=== PATIENT | male | born 1935 | race Caucasian/White ===

== ENCOUNTER 2020-08-11 21:41 | Emergency (ER) | payer MEDICARE, OTHER ==
--- NOTE | 2020-08-11 22:07 | EDM.PDOC ---
ED HPI GENERAL MEDICAL PROBLEM - General Chief Complaint: Genitourinary Problem Stated Complaint: urinary retention Time Seen by Provider: 08/11/20 21:47 Source of Information: Reports: Patient History Limitations: Reports: No Limitations - History of Present Illness INITIAL COMMENTS - FREE TEXT/NARRATIVE: Pt had hernia surgery today at [facility] Has not urinated since Feels full and uncomfortable Onset: Today Duration: Hour(s): Location: Reports: Abdomen - Related Data Allergies Allergy/AdvReac Type Severity Reaction Status Date / Time No Known Allergies Allergy Verified 08/11/20 22:02 Home Meds: Home Meds Beta-Carotene [Beta Carotene] 1 tab PO DAILY 10/11/13 [History] Garlic 1 tab PO DAILY 10/11/13 [History] Lisinopril 10 mg PO DAILY 10/11/13 [History] Pantoprazole [Protonix] 40 mg PO DAILY 10/11/13 [History] ED ROS GENERAL - Review of Systems Review Of Systems: See Below GI/Abdominal: Reports: Abdominal Pain : Reports: Urinary Retention ED EXAM, RENAL/ - Physical Exam Exam: See Below GI/Abdominal: Soft, Tender Course - Vital Signs Last Recorded V/S: Last Vital Signs Temp 98.6 F 08/11/20 21:44 Pulse 78 08/11/20 21:44 Resp 12 08/11/20 21:44 BP 158/80 H 08/11/20 21:44 Pulse Ox 98 08/11/20 21:44 - Orders/Labs/Meds Labs: Laboratory Tests 08/11/20 Range/Units 21:40 Specimen Type Urincath Urine Color Yellow Urine Appearance Clear Urine pH 5.0 (5.0-9.0) Ur Specific [place] 1.020 (1.005-1.030) Urine Protein Trace H (NEGATIVE) mg/dL Urine Glucose (UA) Negative (NEGATIVE) mg/dL Urine Ketones Negative (NEGATIVE) mg/dL Urine Occult Blood Large H (NEGATIVE) Urine Nitrite Negative (NEGATIVE) Urine Bilirubin Negative (NEGATIVE) Urine Urobilinogen 0.2 (0.2-1.0) E.U./dL Ur Leukocyte Esterase Negative (NEGATIVE) U Hyaline Cast (Auto) Few Urine RBC 10-20 H /HPF Urine WBC 0-5 /HPF Ur Epithelial Cells Not seen /LPF Amorphous Sediment Rare (0/HPF) /HPF Urine Bacteria Not seen (NONE TO FEW) /HPF Urine Mucus Rare H (NEGATIVE) /LPF - Re-Assessments/Exams Free Text/Narrative Re-Assessment/Exam: 08/11/20 22:05 Pt straight cathed per nursing 600 cc residual Departure - Departure Time of Disposition: 22:00 Disposition: Home, Self-Care 01 Clinical Impression: Retention of urine - Discharge Information *PRESCRIPTION DRUG MONITORING PROGRAM REVIEWED*: Not Applicable *COPY OF PRESCRIPTION DRUG MONITORING REPORT IN PATIENT ISABEL: Not Applicable Instructions: Acute Urinary Retention, Male, [id number] Additional Instructions: Follow up in clinic To ER if recurs or worse Sepsis Event Note (ED) - Evaluation Sepsis Screening Result: No Definite Risk - Focused Exam Vital Signs: Vital Signs Temp Pulse Resp BP Pulse Ox 08/11/20 21:44 98.6 F 78 12 158/80 H 98
== END 2020-08-11 22:15 | disposition home or self-care (01) ==
LOC: LL.ED 21:41
DX: R33.9 Retention of urine, unspecified (principal); Z79.899 Other long term (current) drug therapy
CPT/HCPCS: 81001; 99282; 99283